=== PATIENT | female | born 1955 | race Caucasian/White ===

== ENCOUNTER 2018-01-07 10:56 | Outpatient (CLI) | payer OTHER ==
--- NOTE | 2018-01-09 13:59 | MMO ---
BILATERAL DIGITAL SCREENING MAMMOGRAMS: History: 62-year-old female presents for digital screening mammography. Comparison: 01-04-17, 01-08-15 FINDINGS: This study is interpreted with the assistance of computer aided detection. There are bilateral breast augmentation prosthesis. There are some typically benign calcifications in both breasts. There are two stable circumscribed masses in the left breast. There is some stable asmita e silicone in the left breast. No direct or indirect evidence of malignancy. IMPRESSION: BIRADS category 2 - benign findings. Continued annual follow up mammograms. POS: MANA
== END 2018-01-07 10:57 | disposition home or self-care (01) ==
LOC: SCSMAMMO 10:56
PROVIDERS: ATTEND Family Medicine
DX: Z12.31 Encounter for screening mammogram for malignant neoplasm of breast (principal)
CPT/HCPCS: 77067

== ENCOUNTER 2022-10-31 13:20 | Outpatient (CLI) | payer MEDICARE | END 2022-10-31 13:21 | disposition home or self-care (01) | LOC: BICMRI 13:20 | PROVIDERS: ATTEND Family Medicine | DX: R59.0 Localized enlarged lymph nodes (principal); N63.21 Unspecified lump in the left breast, upper outer quadrant; N60.42 Mammary duct ectasia of left breast; N60.41 Mammary duct ectasia of right breast; R92.8 Other abnormal and inconclusive findings on diagnostic imaging of breast | CPT/HCPCS: 82565; C8908; A9577 ==

== ENCOUNTER 2025-03-05 11:56 | Outpatient (CLI) | payer MEDICARE | END 2025-03-05 11:57 | disposition home or self-care (01) | LOC: BICMAMMO 11:56 | PROVIDERS: ATTEND Family Medicine | DX: Z12.31 Encounter for screening mammogram for malignant neoplasm of breast (principal); M81.0 Age-related osteoporosis without current pathological fracture; M85.89 Other specified disorders of bone density and structure, multiple sites; Z78.0 Asymptomatic menopausal state; Z98.82 Breast implant status | CPT/HCPCS: 77063; 77067; 77080 ==